=== PATIENT | female | born 1980 | race Caucasian/White ===

== ENCOUNTER 2017-04-30 23:52 | Emergency (ER) | payer BC ==
[2017-05-01 00:04] VITALS: BP 135/94; PULSE 87; TEMP 98.2; BMI 23.3
--- NOTE | 2017-05-01 00:25 | PDOC ---
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 Approximately 10 hours prior to presentation, her left hand was accidentally closed in a plastic frame inserter. Since the patient was visiting elsewhere, she traveled home and presents here for evaluation. No previous history of left hand injury. No other injury sustained today. Patient took Advil at the time of the injury. No other medications taken. PMH ADHD Anxiety Past History - Past Medical History Allergies/Adverse Reactions: Allergies Allergy/AdvReac Type Severity Reaction Status Date / Time sulfur [From Sulfur-8] Allergy Verified 04/30/17 23:55 Home Medications: Ambulatory Orders Atomoxetine HCl [Strattera] 80 mg PO DAILY 04/30/17 Sertraline HCl [Zoloft] 50 mg PO HS 04/30/17 Other medical history: ANXIETY/ADHD - Psycho/Social/Smoking Cessation Hx Anxiety: No Suicidal Ideation: No Smoking History: Never smoked Have you smoked in the past 12 months: No Information on smoking cessation initiated: No Hx Alcohol Use: No Drug/Substance Use Hx: No Substance Use Type: None Review of Systems - Review of Systems Able to Perform ROS?: Yes Comments:: 12 point review of systems is negative except for what is noted in the history of present illness *Physical Exam - Vital Signs Last Vital Signs Temp Pulse Resp BP Pulse Ox 98.2 F 87 16 135/94 100 04/30/17 23:59 04/30/17 23:59 04/30/17 23:59 04/30/17 23:59 04/30/17 23:59 - Physical Exam Comments: GENERAL: Adult female, third and oriented 3, in no acute distress EXTREMITIES: Left handecchymoses, moderate edema/moderate tenderness radial aspect of the mid-dorsum No deformity noted. No snuffbox tenderness; neurovascular functioning intact with excellent capillary refill distally Fingers without edema/tenderness/deformity ; proximal upper extremity without edema/tenderness/deformity NEUROLOGICAL: Cranial nerves II through XII grossly intact. Normal speech. No focal neurological deficits. MUSCULOSKELETAL: Back non-tender to palpation, no CVA tenderness SKIN: Warm, Dry, normal turgor, no rashes or lesions noted. Medical Decision Making - Medical Decision Making 05/01/17 01:34 Left hand x-ray interpreted by Imaging director of provider relations: No evidence of fracture or dislocation Lucian wrap applied to the left hand; patient will be discharged with instructions to elevate and place ice to hand as much as possible over the next 48 hours. Lucian wrap should be worn during the day for the next 5 days The patient will follow-up with Dr. Helton/ if she has persistent pain or swelling in the hand after several days. Patient asked for strong medication for tonight; since the patient has driven herself to the hospital , 1 tablet of Percocet 5/325 was given to her to take when she gets home. Otherwise, she should use ibuprofen/naproxen/acetaminophen as needed for pain *DC/Admit/Observation/Transfer Diagnosis at time of Disposition: Contusion of left hand Qualifiers: Encounter type: initial encounter Qualified Code(s): S60.222A - Contusion of left hand, initial encounter - Discharge Dispostion Disposition: HOME Condition at time of disposition: Stable - Referrals Referrals: Sarbjit Helton MD [Staff Physician] - 1 week - Patient Instructions Printed Discharge Instructions: Contusion Additional Instructions: elevate/ice to hand for the next 2 days lucian wrap to left hand during day for 5 days Ibuprofen/Naproxen/Acetaminophen as needed for pain followup with Dr Helton/Dr Rodrigez if pain/swelling persists more than 5 days - Post Discharge Activity Work/School Note: Back to School
[2017-05-01] MEDS ORDERED: OXYCODONE/APAP 5/325MG COMBO TABLET ONE (01:33)
== END 2017-05-01 01:52 | disposition home or self-care (01) ==
LOC: FER 23:52
DX: S60.222A Contusion of left hand, initial encounter (principal); W23.1XXA Caught, crushed, jammed, or pinched between stationary objects, initial encounter; Y93.89 Activity, other specified; Y92.9 Unspecified place or not applicable
CPT/HCPCS: 73130-TC-LT; 99281-25